=== PATIENT | female | born 1995 ===

== ENCOUNTER 2017-02-03 21:03 | Emergency (ER) | payer MEDICAID ==
[2017-02-03 21:42] VITALS: RESP 18
[2017-02-03] MEDS ORDERED: Sodium Chloride 0.9% 1,000 ML IV STA (22:27)
--- NOTE | 2017-02-03 22:29 | ED PDOC ---
HPI: General Adult Time Seen by Provider: 02/03/17 21:50 Chief Complaint (Nursing): GI Problem Chief Complaint (Provider): congestion, bodyaches History Per: Patient History/Exam Limitations: no limitations Onset/Duration Of Symptoms: Days (1) Current Symptoms Are (Timing): Still Present Additional History Per: Patient Additional Complaint(s): 21 y/o female, approx 12 weeks gestation, presents with congestion, bodyaches x 1 day. Patient notes 3 vomiting episodes today; states only feels nauseous if she looks or thinks about food. Denies fever, headache, sore throat, ear pain, cough, chest pain, shortness of breath, palpitations, abdominal/pelvic pain, vaginal bleeding/discharge, dysuria, hematuria. Past Medical History Reviewed: Historical Data, Nursing Documentation, Vital Signs Vital Signs: Last Vital Signs Temp 97.8 F 02/04/17 00:50 Pulse 85 02/04/17 00:50 Resp 18 02/03/17 21:40 BP 104/75 02/04/17 00:50 Pulse Ox 97 02/04/17 00:50 - Medical History PMH: No Chronic Diseases - Surgical History Surgical History: No Surg Hx - Family History Family History: States: Unknown Family Hx - Living Arrangements Living Arrangements: With Family - Home Medications Home Medications: Ambulatory Orders Medication Instructions Recorded Nitrofurantoin Macrocrystals 100 mg PO BID #10 cap 02/04/17 [Macrobid] - Allergies Allergies/Adverse Reactions: Allergies Allergy/AdvReac Type Severity Reaction Status Date / Time No Known Allergies Allergy Verified 02/03/17 21:39 Review of Systems ROS Statement: Except As Marked, All Systems Reviewed And Found Negative Constitutional: Positive for: Weakness ENT: Positive for: Nose Discharge Physical Exam - Reviewed Nursing Documentation Reviewed: Yes Vital Signs Reviewed: Yes - Physical Exam Appears: Positive for: Well, Non-toxic, No Acute Distress Head Exam: Positive for: ATRAUMATIC, NORMAL INSPECTION, NORMOCEPHALIC Skin: Positive for: Normal Color Eye Exam: Positive for: Normal appearance ENT: Positive for: Normal ENT Inspection Cardiovascular/Chest: Positive for: Regular Rate, Rhythm Respiratory: Positive for: Normal Breath Sounds Gastrointestinal/Abdominal: Positive for: Normal Exam Back: Positive for: Normal Inspection Extremity: Positive for: Normal ROM Neurologic/Psych: Positive for: Alert, Oriented - Laboratory Results Result Diagrams: 02/03/17 23:40 02/03/17 23:40 - ECG O2 Sat by Pulse Oximetry: 100 - Progress ED Course And Treament: labs, flu, step, urine, IV fluids On re-eval, patient resting comfortably; tolerating PO. Patient educated on findings, rx Macrobid given. Advised follow up Ob 2-3 days. Rest. Fluids. Nasal saline spray Return to ED for worsneing/concerning symptoms. Disposition - Clinical Impression Clinical Impression: URI (upper respiratory infection), UTI (urinary tract infection), Vomiting of - Patient ED Disposition Is Patient to be Admitted: No Counseled Patient/Family Regarding: Studies Performed, Diagnosis, Need For Followup, Rx Given - Disposition Disposition: Routine/Home Disposition Time: 01:16 Condition: IMPROVED Additional Instructions: Follow up with [facility] in 2-3 days. Take medication as directed. Use nasal saline spray for nasal congestion. Drink plenty of fluids. Rest. Return to ED for worsening/concerning symptoms. Prescriptions: Nitrofurantoin Macrocrystals [Macrobid] 100 mg PO BID #10 cap Instructions: Urinary Tract Infection in Women (ED), Upper Respiratory Infection (ED)
[2017-02-03 23:33] LABS: RBC URINE 1 /hpf (0-3); URINE BACTERIA RARE (<OCC); URINE BILIRUBIN NEGATIVE (NEGATIVE); URINE BLOOD NEGATIVE (NEGATIVE); URINE COLOR YELLOW (YELLOW); URINE GLUCOSE (UA) NEG (Normal); URINE KETONE NEGATIVE (NEGATIVE); URINE LEUKOCYTE ESTERASE NEG Leu/uL (Negative); URINE PROTEIN NEGATIVE (NEGATIVE); URINE UROBILINOGEN 0.2-1.0 mg/dL (0.2-1.0); WBC URINE 7 /hpf (0-5)
[2017-02-03 23:46] LABS: BASO # 0.1 K/uL (0.0-0.2); EOS # 0.2 K/uL (0.0-0.7); EOS % 2.1 % (0.0-4.0); HEMATOCRIT 37.1 % (34.0-47.0); LYMPH # 1.5 K/uL (1.0-4.3); LYMPH % 17.5 % (20.0-40.0); MEAN CELL VOLUME 81.5 fl (81.0-99.0); MEAN CORPUSCULAR HEMOGLOBIN 26.7 pg (27.0-31.0); MEAN CORPUSCULAR HGB CONC 32.8 g/dL (33.0-37.0); MEAN PLATELET VOLUME 8.6 fl (7.2-11.7); MONO # 0.6 K/uL (0.0-0.8); MONO % 7.7 % (0.0-10.0); NEUT # 5.9 K/uL (1.8-7.0); NEUT % 71.7 % (50.0-75.0); NRBC % 0.1 % (0.0-0.0); RED CELL DISTRIBUTION WIDTH 15.4 % (11.5-14.5); WHITE BLOOD COUNT 8.3 K/uL (4.8-10.8)
[2017-02-03 23:57] LABS: ALKALINE PHOSPHATASE 58 U/L (38-126); ALT/SGPT 33 U/L (9-52); AST/SGOT 32 U/L (14-36); BILIRUBIN,TOTAL 0.3 mg/dl (0.2-1.3); BLOOD UREA NITROGEN 8 mg/dl (7-17); CALCIUM 9.4 mg/dL (8.4-10.2); CARBON DIOXIDE 23 mmol/L (22-30); CHLORIDE 104 mmol/L (98-107); GFR AFRICAN-AMERICAN > 60; GLUCOSE,RANDOM 96 mg/dL (65-105); POTASSIUM 3.8 MMOL/L (3.6-5.0); SODIUM 139 mmol/l (132-148); TOTAL PROTEIN 7.5 G/DL (6.3-8.2)
[2017-02-04 00:52] VITALS: BP 104/75; PULSE 85; TEMP 97.8
[2017-02-04 01:16] VITALS: O2SAT 100
== END 2017-02-04 01:14 | disposition home or self-care (01) ==
LOC: H.ER 21:03
DX: O21.9 Vomiting of pregnancy, unspecified (principal); O26.891 Other specified pregnancy related conditions, first trimester; Z3A.12 12 weeks gestation of pregnancy; J06.9 Acute upper respiratory infection, unspecified; O23.40 Unspecified infection of urinary tract in pregnancy, unspecified trimester